=== PATIENT | male | born 1935 | race Caucasian/White ===

== ENCOUNTER 2016-04-26 21:36 | Inpatient (IN) | payer MEDICARE, MEDICAID ==
[~2016-04-26] VITALS: Ht 162.6 cm; Wt 75.7 kg
[2016-04-26 22:16] VITALS: BP 134/79
[2016-04-26 23:07] LABS: BASOPHILS % 0.3 % (0.0-2.0); EOSINOPHILS % 0.2 % (0.0-5.0); HEMATOCRIT. 31.5 % (42.0-52.0); HEMOGLOBIN. 10.8 g/dL (14.0-18.0); LYMPHOCYTES % 22.5 % (20.0-50.0); MEAN CORPUSCULAR HEMOGLOBIN 32.2 pg (28.0-32.0); MEAN CORPUSCULAR HGB CONC 34.3 g/dL (31.0-37.0); MEAN CORPUSCULAR VOLUME 93.8 fL (80.0-94.0); MEAN PLATELET VOLUME 8.5 fl (7.4-10.4); PLATELET 171 x1000/uL (130-400); RED BLOOD CELL COUNT 3.35 mill/uL (4.7-6.1); RED CELL DISTRIBUTION WIDTH 12.3 % (11.6-14.6); WHITE BLOOD COUNT 8.8 x1000/uL (4.5-11.0)
[2016-04-26] MEDS ORDERED: METF-240 PO (23:08)
[2016-04-26] MEDS ORDERED: HYDR25TA PO (23:08)
[2016-04-26] MEDS ORDERED: SIMV20TA6 PO (23:08)
[2016-04-26] MEDS ORDERED: MEMA10TA11 PO (23:08)
[2016-04-26] MEDS ORDERED: ASPI-1035 PO (23:08)
[2016-04-26] MEDS ORDERED: BENA20TA3 PO (23:08)
[2016-04-26] MEDS ORDERED: TAMS0.4C31 PO (23:08)
[2016-04-26 23:27] LABS: CALCIUM 8.7 mg/dL (8.5-10.1); THYROID STIMULATING HORMONE 3.1 uIU/mL (0.36-3.74)
[2016-04-26 23:35] VITALS: BP 134/79
[2016-04-27] VITALS (7 sets, daily range): BP systolic 131–152; BP diastolic 80–93
[2016-04-27 06:51] LABS: BASOPHILS % 0.4 % (0.0-2.0); EOSINOPHILS % 0.2 % (0.0-5.0); HEMATOCRIT. 29.7 % (42.0-52.0); HEMOGLOBIN. 10.3 g/dL (14.0-18.0); LYMPHOCYTES % 18.3 % (20.0-50.0); MEAN CORPUSCULAR HEMOGLOBIN 32.5 pg (28.0-32.0); MEAN CORPUSCULAR HGB CONC 34.7 g/dL (31.0-37.0); MEAN CORPUSCULAR VOLUME 93.8 fL (80.0-94.0); MEAN PLATELET VOLUME 8.6 fl (7.4-10.4); MONOCYTES % 10.5 % (2.0-8.0); NEUTROPHILS % 70.6 % (40.0-76.0); PLATELET 165 x1000/uL (130-400); RED BLOOD CELL COUNT 3.17 mill/uL (4.7-6.1); WHITE BLOOD COUNT 8.7 x1000/uL (4.5-11.0)
[2016-04-27 07:13] LABS: CHLORIDE 103 mEq/L (98-107); INDEX HEMOLYSI 1 (1-3); INDEX ICTERIC 1 (1-4); INDEX LIPEMIC 1 (1-3)
[2016-04-27 07:40] LABS: ALANINE AMINOTRANSFERASE 9 IU/L (13-61); ALBUMIN 2.6 g/dL (3.4-5.0); ANION GAP 19; CALCIUM 8.4 mg/dL (8.5-10.1); CARBON DIOXIDE 21 mEq/L (21-32); CREATINE KINASE 42 IU/L (39-308); HDL CHOLESTEROL 46 mg/dL (40-59); LDL CHOLESTEROL 45 mg/dL (5-100); TRIGLYCERIDE 158 mg/dL (0-150); TROPONIN I < 0.02 ng/mL (0.00-0.04); UREA NITROGEN BLOOD 25 mg/dL (7-21); eGFR 45 mL/min (>60)
[2016-04-27] MEDS ORDERED: AZIT250T4 PO (08:25)
[2016-04-27] MEDS ORDERED: THIAMINE HCL 100MG TABLET PO NR (16:30)
[2016-04-27] MEDS ORDERED: LORAZEPAM 2MG/ML CPJ IV PRN (16:30)
[2016-04-27] MEDS ORDERED: IPRATROPIUM/ALBUTEROL 0.5-3(2.5)MG/3ML NEB HHN PRN (16:30)
[2016-04-27 16:52] LABS: TROPONIN I 0.02 ng/mL (0.00-0.04)
[2016-04-27] MEDS ORDERED: ONDANSETRON HCL 4MG/2ML VIAL IV PRN (17:15)
[2016-04-27] MEDS ORDERED: ACETAMINOPHEN 325MG TABLET PO PRN (17:15)
[2016-04-27] MEDS ORDERED: ACETAMINOPHEN 650MG SUPP PR PRN (17:15)
[2016-04-27] MEDS ORDERED: MAGNESIUM/ALUMINUM HYDROXIDE/SIMETHICONE 30ML UDC PO PRN (17:15)
[2016-04-27] MEDS ORDERED: DIPHENHYDRAMINE 50MG/ML VIAL IV PRN (17:15)
[2016-04-27] MEDS ORDERED: ACETAMINOPHEN 650MG/20.3ML UDC GT PRN (17:15)
[2016-04-27] MEDS ORDERED: DOCUSATE SODIUM 100MG CAPSULE PO PRN (17:15)
[2016-04-27] MEDS ORDERED: IPRATROPIUM/ALBUTEROL 0.5-3(2.5)MG/3ML NEB INH PRN (17:15)
[2016-04-27] MEDS ORDERED: GUAIFENESIN 200MG/10ML SUGAR FREE UDC PO PRN (17:15)
[2016-04-27] MEDS ORDERED: CLONIDINE 0.1MG TABLET PO PRN (17:15)
[2016-04-27 17:18] LABS: CLARITY URINE CLEAR (CLEAR); COLOR URINE YELLOW (YELLOW); GLUCOSE URINE 2+ (NEGATIVE); KETONES URINE 1+ (NEGATIVE); LEUKOCYTE ESTERASE URINE 2+ (NEGATIVE); NITRITE URINE NEGATIVE (NEGATIVE); OCCULT BLOOD URINE 2+ (NEGATIVE); PH URINE 6.5 (4.5-8.0); PROTEIN URINE 3+ (NEGATIVE); SPECIFIC GRAVITY URINE 1.018 (1.005-1.030)
[2016-04-27] MEDS: MULTIVITAMINS,THER W-MINERALS TABLET PO SCH (17:29)
[2016-04-27] MEDS ORDERED: NA PHOS,M-B/NA PHOS,DI-BA ENEMA 118ML PR PRN (17:30)
[2016-04-27] MEDS: CHLORDIAZEPOXIDE 5 MG CAPSULE PO SCH ×2 (17:34→23:38)
[2016-04-27] MEDS: FOLIC ACID 1MG TABLET PO SCH (17:35)
[2016-04-27 17:36] LABS: *AMPHETAMINES SCREEN URINE NEGATIVE (NEGATIVE); *BARBITURATES SCREEN URINE NEGATIVE (NEGATIVE); *BENZODIAZEPINES SCREEN URINE NEGATIVE (NEGATIVE); *COCAINE SCREEN URINE NEGATIVE (NEGATIVE); CANNABINOID URINE SCREEN NEGATIVE (NEGATIVE); ECSTASY MDMA SCREEN URINE NEGATIVE (NEGATIVE); METHADONE URINE SCREEN NEGATIVE (NEGATIVE); OPIATES URINE SCREEN NEGATIVE (NEGATIVE); PHENCYCLIDINE URINE SCREEN NEGATIVE (NEGATIVE)
[2016-04-27] MEDS ORDERED: DEXTROSE 50% WATER 50ML SYRINGE IV PRN (17:45)
[2016-04-27 17:57] LABS: BACTERIA URINE 1+; SQUAMOUS EPITHELIAL CELL URINE NONE SEEN /lpf (RARE/1+)
[2016-04-27] MEDS: INSULIN LISPRO 100 UNITS/ML SUBCUT SCH ×2 (18:18→23:39)
[2016-04-27] MEDS: SODIUM CHLORIDE 0.45% 1,000 ML IV SCH (18:39)
[2016-04-27] MEDS: SODIUM CHLORIDE 0.9% INJ 3ML FLUSH IVF SCH (22:30)
[2016-04-27] MEDS: BLOOD SUGAR DIAGNOSTIC STRIP TEST SCH (22:30)
[2016-04-27] MEDS: ENOXAPARIN 40MG/0.4ML SYR SUBCUT SCH (23:38)
[2016-04-28] VITALS (8 sets, daily range): BP systolic 115–168; BP diastolic 66–82
[2016-04-28] MEDS: CHLORDIAZEPOXIDE 5 MG CAPSULE PO SCH ×3 (05:53→21:01)
[2016-04-28] MEDS: SODIUM CHLORIDE 0.9% INJ 3ML FLUSH IVF SCH ×3 (06:05→21:00)
[2016-04-28] MEDS: SODIUM CHLORIDE 0.45% 1,000 ML IV SCH ×2 (06:28→17:06)
[2016-04-28] MEDS: BLOOD SUGAR DIAGNOSTIC STRIP TEST SCH ×4 (06:31→20:54)
[2016-04-28 06:33] LABS: BASOPHILS % 0.4 % (0.0-2.0); EOSINOPHILS % 0.2 % (0.0-5.0); HEMATOCRIT. 30.6 % (42.0-52.0); HEMOGLOBIN. 10.4 g/dL (14.0-18.0); LYMPHOCYTES % 18.2 % (20.0-50.0); MEAN CORPUSCULAR HEMOGLOBIN 32.4 pg (28.0-32.0); MEAN CORPUSCULAR HGB CONC 34.1 g/dL (31.0-37.0); MEAN CORPUSCULAR VOLUME 95.1 fL (80.0-94.0); MEAN PLATELET VOLUME 8.5 fl (7.4-10.4); MONOCYTES % 9.8 % (2.0-8.0); NEUTROPHILS % 71.4 % (40.0-76.0); PLATELET 188 x1000/uL (130-400); RED BLOOD CELL COUNT 3.22 mill/uL (4.7-6.1); RED CELL DISTRIBUTION WIDTH 11.9 % (11.6-14.6)
[2016-04-28 07:06] LABS: CHLORIDE 103 mEq/L (98-107); INDEX HEMOLYSI 1 (1-3); INDEX ICTERIC 1 (1-4); INDEX LIPEMIC 1 (1-3)
[2016-04-28 07:13] LABS: ALANINE AMINOTRANSFERASE 9 IU/L (13-61); ALBUMIN 2.6 g/dL (3.4-5.0); ANION GAP 18; CALCIUM 8.5 mg/dL (8.5-10.1); CARBON DIOXIDE 21 mEq/L (21-32); UREA NITROGEN BLOOD 23 mg/dL (7-21); eGFR 53 mL/min (>60)
[2016-04-28] MEDS: ASPIRIN 81MG EC TABLET PO SCH (08:14)
[2016-04-28] MEDS: MULTIVITAMINS,THER W-MINERALS TABLET PO SCH (08:14)
[2016-04-28] MEDS: THIAMINE HCL 100MG TABLET PO SCH (08:14)
[2016-04-28] MEDS: MEMANTINE HCL 10MG TABLET PO SCH (08:14)
[2016-04-28] MEDS: INSULIN LISPRO 100 UNITS/ML SUBCUT SCH ×4 (08:16→20:57)
[2016-04-28] MEDS: TAMSULOSIN HCL 0.4MG SR CAPSULE PO SCH (08:17)
[2016-04-28] MEDS: FOLIC ACID 1MG TABLET PO SCH ×2 (08:24→11:30)
[2016-04-28 13:07] LABS: AMMONIA 21 uMol/L (<32); INDEX HEMOLYSI 1 (1-3)
[2016-04-28] MEDS: ENOXAPARIN 40MG/0.4ML SYR SUBCUT SCH ×2 (20:00→20:55)
[2016-04-28 20:29] LABS: INDEX HEMOLYSI 1 (1-3)
[2016-04-28 20:44] LABS: VITAMIN B12 SERUM 258 pg/mL (211-911)
[2016-04-29] VITALS: BP 131/72
[2016-04-29] MEDS: SODIUM CHLORIDE 0.9% INJ 3ML FLUSH IVF SCH ×2 (04:58→13:05)
[2016-04-29] MEDS: BLOOD SUGAR DIAGNOSTIC STRIP TEST SCH ×2 (05:02→12:08)
[2016-04-29 05:05] VITALS: BP 138/83
[2016-04-29] MEDS: CHLORDIAZEPOXIDE 5 MG CAPSULE PO SCH ×2 (05:06→13:05)
[2016-04-29] MEDS: SODIUM CHLORIDE 0.45% 1,000 ML IV SCH (05:25)
[2016-04-29 08:00] VITALS: BP 115/72
[2016-04-29] MEDS: MEMANTINE HCL 10MG TABLET PO SCH (08:10)
[2016-04-29] MEDS: FOLIC ACID 1MG TABLET PO SCH (08:10)
[2016-04-29] MEDS: MULTIVITAMINS,THER W-MINERALS TABLET PO SCH (08:11)
[2016-04-29] MEDS: ASPIRIN 81MG EC TABLET PO SCH (08:11)
[2016-04-29] MEDS: INSULIN LISPRO 100 UNITS/ML SUBCUT SCH ×2 (08:13→12:55)
[2016-04-29] MEDS: THIAMINE HCL 100MG TABLET PO SCH (08:14)
[2016-04-29] MEDS: TAMSULOSIN HCL 0.4MG SR CAPSULE PO SCH (08:41)
[2016-04-29] MEDS ORDERED: PANTOPRAZOLE SODIUM 40 MG/VIAL IV SCH (09:00)
[2016-04-29] MEDS ORDERED: POTASSIUM CHLORIDE 20MEQ TABLET SR PO NR (10:15)
[2016-04-29 12:00] VITALS: BP 136/76
[2016-04-29 14:37] VITALS: BP 136/76
[2016-04-29 16:00] VITALS: BP 128/71
== END 2016-04-29 16:05 | DRG 682 ==
LOC: 6EST 21:36
PROVIDERS: ADMIT Family Medicine; ATTEND Family Medicine
DX: N17.9 Acute kidney failure, unspecified (principal); J96.00 Acute respiratory failure, unspecified whether with hypoxia or hypercapnia; E43 Unspecified severe protein-calorie malnutrition; F10.239 Alcohol dependence with withdrawal, unspecified; E11.22 Type 2 diabetes mellitus with diabetic chronic kidney disease; F03.90 Unspecified dementia, unspecified severity, without behavioral disturbance, psychotic disturbance, mood disturbance, and anxiety; E78.5 Hyperlipidemia, unspecified; I12.9 Hypertensive chronic kidney disease with stage 1 through stage 4 chronic kidney disease, or unspecified chronic kidney disease; N40.0 Benign prostatic hyperplasia without lower urinary tract symptoms; R62.7 Adult failure to thrive; Y90.9 Presence of alcohol in blood, level not specified; D63.8 Anemia in other chronic diseases classified elsewhere; D72.821 Monocytosis (symptomatic); I51.7 Cardiomegaly; I25.10 Atherosclerotic heart disease of native coronary artery without angina pectoris; N18.9 Chronic kidney disease, unspecified; Z68.28 Body mass index [BMI] 28.0-28.9, adult; Z87.891 Personal history of nicotine dependence; Z95.1 Presence of aortocoronary bypass graft; Z79.899 Other long term (current) drug therapy; Z79.2 Long term (current) use of antibiotics; I25.2 Old myocardial infarction; Z79.82 Long term (current) use of aspirin
CPT/HCPCS: 36415; 70450; 71010; 76705; 80048; 80053; 80061; 80305; 81001; 82140; 82550; 82607; 82962; 83036; 83735; 84134; 84443; 84484; 85025; 87086; 92610; 93970; 97162; 97166; A6261; C1893; C9113; J1650; J1815; J7030

== ENCOUNTER 2017-05-02 14:50 | Inpatient (IN) | payer MEDICARE, MEDICAID ==
[~2017-05-02] VITALS: Ht 175.3 cm; Wt 84.8 kg
[~2017-05-02 14:50] MED LIST: ASPI-1159 PO; AZIT250T12 PO; BENA20TA3 PO; HYDR25TA PO; MEMA10TA2 PO; METF500T4 PO; SIMV20TA6 PO; TAMS0.4C31 PO
[2017-05-02 16:06] LABS: BG BASE EXCESS -3.4 mmol/L (-2.0-2.0); BG CARBOXYHEMOGLOBIN 0.7 % (0.5-1.5); BG DEOXYHEMOGLOBIN 9.4 % (0.0-5.0); BG FRACTION INSPIRED OXYGEN 21; BG HCO3 ACT 19.8 mmol/L (22.0-26.0); BG METHEMOGLOBIN 0.4 % (0.0-1.5); BG OXYGEN SATURATION 90.5 % (92.0-98.5); BG OXYHEMOGLOBIN 89.5 % (94.0-97.0); BG PH 7.438 (7.350-7.450); BG PO2 60.1 mmHg (75.0-100.0); BG SAMPLE SITE RIGHT BRACHIAL; BG VENT MODE ROOM AIR
[2017-05-02 16:11] LABS: BASOPHILS % 0.3 % (0.0-2.0); EOSINOPHILS % 1.1 % (0.0-5.0); HEMATOCRIT. 33.9 % (42.0-52.0); HEMOGLOBIN. 11.5 g/dL (14.0-18.0); LYMPHOCYTES % 11.2 % (20.0-50.0); MEAN CORPUSCULAR HEMOGLOBIN 31.2 pg (28.0-32.0); MEAN CORPUSCULAR VOLUME 91.9 fL (80.0-94.0); MEAN PLATELET VOLUME 7.8 fl (7.4-10.4); MONOCYTES % 8.7 % (2.0-8.0); NEUTROPHILS % 78.7 % (40.0-76.0); PLATELET 356 x1000/uL (130-400); RED BLOOD CELL COUNT 3.69 mill/uL (4.7-6.1); RED CELL DISTRIBUTION WIDTH 13.9 % (11.6-14.6)
[2017-05-02 16:16] LABS: INR 1.1; PARTIAL THROMBOPLASTIN TIME 28.5 sec (23.4-31.0); PROTHROMBIN TIME 11.2 sec (9.4-11.6)
[2017-05-02 16:19] LABS: CHLORIDE 105 mEq/L (98-107)
[2017-05-02] MEDS ORDERED: CEFTRIAXONE 1 G PREMIX 50 ML IV ONE (17:00)
[2017-05-02] MEDS ORDERED: AZITHROMYCIN 500 MG in DEXT 5% WATER 250 ML IV SCH (17:00)
[2017-05-02] MEDS ORDERED: DOCUSATE SODIUM 100MG CAPSULE PO PRN (22:30)
[2017-05-02] MEDS ORDERED: HYDROCODONE/ACETAMINOPHEN 5/325MG TABLET PO PRN (22:30)
[2017-05-02] MEDS ORDERED: ACETAMINOPHEN 650MG SUPP PR PRN (22:30)
[2017-05-02] MEDS ORDERED: NA PHOS,M-B/NA PHOS,DI-BA ENEMA 118ML PR PRN (22:30)
[2017-05-02] MEDS ORDERED: ONDANSETRON HCL 4MG/2ML VIAL IV PRN (22:30)
[2017-05-02] MEDS ORDERED: GUAIFENESIN 200MG/10ML SUGAR FREE UDC PO PRN (22:30)
[2017-05-02] MEDS ORDERED: ACETAMINOPHEN 325MG TABLET PO PRN (22:30)
[2017-05-02] MEDS ORDERED: ACETAMINOPHEN 650MG/20.3ML UDC GT PRN (22:30)
[2017-05-02] MEDS ORDERED: IPRATROPIUM/ALBUTEROL 0.5-3(2.5)MG/3ML NEB INH PRN (22:30)
[2017-05-02] MEDS ORDERED: MAGNESIUM/ALUMINUM HYDROXIDE/SIMETHICONE 30ML UDC PO PRN (22:30)
[2017-05-02] MEDS ORDERED: DIPHENHYDRAMINE 50MG/ML VIAL IV PRN (22:30)
[2017-05-02 23:45] LABS: CLARITY URINE CLEAR (CLEAR); COLOR URINE YELLOW (YELLOW); KETONES URINE 1+ (NEGATIVE); LEUKOCYTE ESTERASE URINE 1+ (NEGATIVE); NITRITE URINE NEGATIVE (NEGATIVE); OCCULT BLOOD URINE 2+ (NEGATIVE); PROTEIN URINE 3+ (NEGATIVE); SPECIFIC GRAVITY URINE 1.026 (1.005-1.030); UROBILINOGEN URINE 0.2 E.U./dL (0.2-1.0)
[2017-05-03] VITALS (7 sets, daily range): BP systolic 132–154; BP diastolic 68–79
[2017-05-03 00:35] LABS: *AMPHETAMINES SCREEN URINE NEGATIVE (NEGATIVE); *BARBITURATES SCREEN URINE NEGATIVE (NEGATIVE); *BENZODIAZEPINES SCREEN URINE NEGATIVE (NEGATIVE); *COCAINE SCREEN URINE NEGATIVE (NEGATIVE); CANNABINOID URINE SCREEN NEGATIVE (NEGATIVE); METHADONE URINE SCREEN NEGATIVE (NEGATIVE); OPIATES URINE SCREEN NEGATIVE (NEGATIVE); PHENCYCLIDINE URINE SCREEN NEGATIVE (NEGATIVE)
[2017-05-03] MEDS ORDERED: ZITHROMAX XX SCH (03:45)
[2017-05-03] MEDS ORDERED: ROCEPHINE XX SCH (03:45)
[2017-05-03 06:02] LABS: BASOPHILS % 0.2 % (0.0-2.0); EOSINOPHILS % 0.7 % (0.0-5.0); MEAN CORPUSCULAR HEMOGLOBIN 30.7 pg (28.0-32.0); MEAN CORPUSCULAR VOLUME 92.2 fL (80.0-94.0); MONOCYTES % 9.1 % (2.0-8.0); PLATELET 371 x1000/uL (130-400); RED BLOOD CELL COUNT 3.91 mill/uL (4.7-6.1); RED CELL DISTRIBUTION WIDTH 13.8 % (11.6-14.6)
[2017-05-03] MEDS: SODIUM CHLORIDE 0.9% INJ 3ML FLUSH IVF SCH ×3 (06:20→20:40)
[2017-05-03 06:25] LABS: CHLORIDE 104 mEq/L (98-107)
[2017-05-03 06:41] LABS: HDL CHOLESTEROL 24 mg/dL (40-59); LDL CHOLESTEROL 74 mg/dL (5-100)
[2017-05-03] MEDS: IPRATROPIUM/ALBUTEROL 0.5-3(2.5)MG/3ML NEB INH SCH ×3 (08:02→21:08)
[2017-05-03] MEDS ORDERED: DEXTROSE 50% WATER 50ML SYRINGE IV PRN (13:00)
[2017-05-03] MEDS: CEFTRIAXONE 1 G PREMIX 50 ML IV SCH (13:25)
[2017-05-03] MEDS: ENOXAPARIN 40MG/0.4ML SYR SUBCUT SCH (13:25)
[2017-05-03] MEDS: INSULIN LISPRO 100 UNITS/ML SUBCUT SCH ×3 (13:27→20:40)
[2017-05-03] MEDS: AZITHROMYCIN 500 MG in DEXT 5% WATER 250 ML IV SCH (14:12)
[2017-05-03] MEDS ORDERED: CEFTRIAXONE 1 G PREMIX 50 ML IV SCH (17:00)
[2017-05-03] MEDS: BLOOD SUGAR DIAGNOSTIC STRIP TEST SCH ×2 (17:53→20:40)
[2017-05-03] MEDS: GUAIFENESIN 600MG ER TABLET PO SCH (17:54)
[2017-05-03] MEDS ORDERED: AZITHROMYCIN 500 MG in DEXT 5% WATER 250 ML IV SCH (18:00)
[2017-05-04] VITALS: BP 150/78
[2017-05-04] MEDS: IPRATROPIUM/ALBUTEROL 0.5-3(2.5)MG/3ML NEB INH SCH ×4 (01:43→20:56)
[2017-05-04 04:00] VITALS: BP 164/84
[2017-05-04] MEDS: SODIUM CHLORIDE 0.9% INJ 3ML FLUSH IVF SCH ×3 (05:30→20:49)
[2017-05-04] MEDS: CLONIDINE 0.1MG TABLET PO PRN (06:23)
[2017-05-04] MEDS: BLOOD SUGAR DIAGNOSTIC STRIP TEST SCH ×4 (06:51→21:35)
[2017-05-04 08:00] VITALS: BP 129/60
[2017-05-04] MEDS: ENOXAPARIN 40MG/0.4ML SYR SUBCUT SCH (09:47)
[2017-05-04] MEDS: CEFTRIAXONE 1 G PREMIX 50 ML IV SCH (09:47)
[2017-05-04] MEDS: AZITHROMYCIN 500 MG in DEXT 5% WATER 250 ML IV SCH (09:47)
[2017-05-04] MEDS: GUAIFENESIN 600MG ER TABLET PO SCH ×2 (09:48→20:48)
[2017-05-04] MEDS: INSULIN LISPRO 100 UNITS/ML SUBCUT SCH ×4 (09:49→21:40)
[2017-05-04 12:00] VITALS: BP 123/79
[2017-05-04 16:00] VITALS: BP 144/76
[2017-05-04 20:00] VITALS: BP 100/73
[2017-05-04 21:35] LABS: BASOPHILS % 0.5 % (0.0-2.0); EOSINOPHILS % 0.6 % (0.0-5.0); HEMATOCRIT. 33.8 % (42.0-52.0); HEMOGLOBIN. 11.5 g/dL (14.0-18.0); LYMPHOCYTES % 17.1 % (20.0-50.0); MEAN CORPUSCULAR HEMOGLOBIN 31.1 pg (28.0-32.0); MEAN CORPUSCULAR VOLUME 91.3 fL (80.0-94.0); MEAN PLATELET VOLUME 8.1 fl (7.4-10.4); NEUTROPHILS % 71.8 % (40.0-76.0); PLATELET 360 x1000/uL (130-400); RED CELL DISTRIBUTION WIDTH 13.9 % (11.6-14.6)
[2017-05-04 21:41] LABS: CHLORIDE 108 mEq/L (98-107)
[2017-05-04 21:46] LABS: HDL CHOLESTEROL 29 mg/dL (40-59); LDL CHOLESTEROL 76 mg/dL (5-100)
[2017-05-05] VITALS: BP 102/75
[2017-05-05] MEDS: IPRATROPIUM/ALBUTEROL 0.5-3(2.5)MG/3ML NEB INH SCH ×6 (02:41→20:10)
[2017-05-05 04:00] VITALS: BP 140/72
[2017-05-05] MEDS: SODIUM CHLORIDE 0.9% INJ 3ML FLUSH IVF SCH ×3 (06:27→20:52)
[2017-05-05] MEDS: BLOOD SUGAR DIAGNOSTIC STRIP TEST SCH ×4 (06:28→20:59)
[2017-05-05 08:00] VITALS: BP 141/76
[2017-05-05] MEDS: INSULIN LISPRO 100 UNITS/ML SUBCUT SCH ×4 (08:10→20:59)
[2017-05-05] MEDS: AZITHROMYCIN 500 MG in DEXT 5% WATER 250 ML IV SCH (09:42)
[2017-05-05] MEDS: GUAIFENESIN 600MG ER TABLET PO SCH ×2 (09:42→20:52)
[2017-05-05] MEDS: ENOXAPARIN 40MG/0.4ML SYR SUBCUT SCH (09:42)
[2017-05-05] MEDS: CEFTRIAXONE 1 G PREMIX 50 ML IV SCH (11:35)
[2017-05-05 12:00] VITALS: BP 151/85
[2017-05-05 16:00] VITALS: BP 159/84
[2017-05-05 20:00] VITALS: BP 156/79
[2017-05-06] VITALS: BP 160/91
[2017-05-06] MEDS: CLONIDINE 0.1MG TABLET PO PRN (00:26)
[2017-05-06] MEDS: IPRATROPIUM/ALBUTEROL 0.5-3(2.5)MG/3ML NEB INH SCH ×3 (01:30→13:24)
[2017-05-06 04:00] VITALS: BP 161/84
[2017-05-06] MEDS: BLOOD SUGAR DIAGNOSTIC STRIP TEST SCH ×2 (05:59→12:40)
[2017-05-06] MEDS: SODIUM CHLORIDE 0.9% INJ 3ML FLUSH IVF SCH (05:59)
[2017-05-06 08:00] VITALS: BP 149/79
[2017-05-06] MEDS: INSULIN LISPRO 100 UNITS/ML SUBCUT SCH ×2 (08:10→13:02)
[2017-05-06] MEDS: AZITHROMYCIN 500 MG in DEXT 5% WATER 250 ML IV SCH (08:57)
[2017-05-06] MEDS: GUAIFENESIN 600MG ER TABLET PO SCH (08:58)
[2017-05-06] MEDS: ENOXAPARIN 40MG/0.4ML SYR SUBCUT SCH (08:58)
[2017-05-06] MEDS: CEFTRIAXONE 1 G PREMIX 50 ML IV SCH (10:48)
[2017-05-06 12:00] VITALS: BP 141/81
[2017-05-06 13:40] VITALS: BP 142/77
[2017-05-06 16:00] VITALS: BP 155/77
== END 2017-05-06 16:05 | DRG 871 ==
LOC: ER 15:01 → 7WST 18:43 → EDBEDREQTM 18:46 → EDBEDREQ 18:46 → ENRESERV 20:50
PROVIDERS: ADMIT Family Medicine; ATTEND Family Medicine
DX: A41.9 Sepsis, unspecified organism (principal); J18.9 Pneumonia, unspecified organism; J96.01 Acute respiratory failure with hypoxia; F03.90 Unspecified dementia, unspecified severity, without behavioral disturbance, psychotic disturbance, mood disturbance, and anxiety; I25.10 Atherosclerotic heart disease of native coronary artery without angina pectoris; E78.5 Hyperlipidemia, unspecified; N18.9 Chronic kidney disease, unspecified; E11.22 Type 2 diabetes mellitus with diabetic chronic kidney disease; N40.0 Benign prostatic hyperplasia without lower urinary tract symptoms; D64.9 Anemia, unspecified; I13.10 Hypertensive heart and chronic kidney disease without heart failure, with stage 1 through stage 4 chronic kidney disease, or unspecified chronic kidney disease; E78.00 Pure hypercholesterolemia, unspecified; Z87.440 Personal history of urinary (tract) infections; Z79.82 Long term (current) use of aspirin; Z79.899 Other long term (current) drug therapy; I25.2 Old myocardial infarction; Z95.1 Presence of aortocoronary bypass graft
CPT/HCPCS: 36415; 36600; 71045; 80053; 80061; 80305; 81003; 82375; 82805; 82962; 83036; 83605; 83880; 84443; 84484; 85025; 85610; 85730; 87040; 87086; 87804; 92610; 93005; 94640; 96365; 96368; 97116; 97162; 97165; 97530; 97535; 99285; J0456; J0696; J1650; J1815; J7050; J7060; J7620